=== PATIENT | female | born 1980 | race Hispanic/Latino ===

== ENCOUNTER 2017-01-16 17:30 | Emergency (ER) | payer BC ==
[2017-01-16 17:39] VITALS: BP 116/79; PULSE 73; RESP 20; TEMP 97.5; O2SAT 100
--- NOTE | 2017-01-16 18:06 | ED PDOC ---
Arrival/HPI - General Chief Complaint: Foreign Body Time Seen by Provider: 01/16/17 17:38 Historian: Patient - History of Present Illness Narrative History of Present Illness (Text): 01/16/17 18:03 36 y.o. female who denies any past medical history who says that she placed a tampon in her vagina about 4-5 days ago and forgot it in. She subsequently had sex and noticed after it the foul smelly discharge. She denies any pain or n/v or fever or pain or burning with urination. Past Medical History - Travel History If Yes, travel location?: [facility] - Infectious Disease Hx of Infectious Diseases: None - Psychiatric Hx Substance Use: No - Surgical History Hx Tonsillectomy: Yes - Anesthesia Hx Anesthesia: Yes Hx Anesthesia Reactions: No Family/Social History Family/Social History: No Known Family HX Smoking Status: Never Smoked Hx Alcohol Use: Yes Frequency of alcohol use: Socially Hx Substance Use: No Allergies/Home Meds Allergies/Adverse Reactions: Allergies No Known Allergies Allergy (Unverified 01/16/17 17:50) Review of Systems - Review of Systems Constitutional: absent: Fevers Gastrointestinal: absent: Abdominal Pain, Nausea, Vomiting Genitourinary Female: absent: Dysuria, Frequency Physical Exam Vital Signs Temp Pulse Resp BP Pulse Ox 01/16/17 17:37 97.5 F L 73 20 116/79 100 Temperature: Afebrile Blood Pressure: Normal Pulse: Regular Respiratory Rate: Normal Appearance: Positive for: Well-Appearing, Non-Toxic, Comfortable Pain Distress: None Mental Status: Positive for: Alert and Oriented X 3 - Systems Exam Head: Present: Atraumatic, Normocephalic Abdomen: Present: Normal Bowel Sounds. No: Tenderness, Distention, Peritoneal Signs Genitourinary/Pelvic Exam: Present: Normal External Genitalia, Vaginal Discharge (scant foul smelly discharge), Cervical os Closed, Odor, Other ( tampon seen on speculum exam and removed with tongs). No: Vaginal Lesions, Adenexal Tenderness, Adenexal Mass, Cervical Motion Tendernes Back: Present: Normal Inspection. No: CVA Tenderness Lower Extremity: Present: Normal Inspection. No: Edema Medical Decision Making ED Course and Treatment: 01/16/17 18:11 Patient with noted history with vaginal foreign body removed. 01/16/17 18:13 HCG negative; urine is negative for UTI - will d/c on flagyl and doxycycline. - Lab Interpretations Lab Results: Lab Results 01/16/17 17:52: Urine Color Yellow, Urine Appearance Clear, Urine pH 6.0, Ur Specific [place] 1.025, Urine Protein Negative, Urine Glucose (UA) Negative, Urine Ketones Negative, Urine Blood Negative, Urine Nitrate Negative, Urine Bilirubin Negative, Urine Urobilinogen 0.2, Ur Leukocyte Esterase Negative - Medication Orders Current Medication Orders: Discontinued Medications Doxycycline Hyclate (Doryx) 100 mg PO STAT STA PRN Reason: Protocol Stop: 01/16/17 18:03 Metronidazole (Flagyl) 500 mg PO STAT STA PRN Reason: Protocol Stop: 01/16/17 18:03 Disposition/Present on Arrival - Present on Arrival Any Indicators Present on Arrival: No History of DVT/PE: No History of Uncontrolled Diabetes: No Urinary Catheter: No History of Decub. Ulcer: No History Surgical Site Infection Following: None - Disposition Have Diagnosis and Disposition been Completed?: Yes Diagnosis: Retained vaginal foreign body Disposition: HOME/ ROUTINE Disposition Time: 18:20 Patient Plan: Discharge Condition: GOOD Discharge Instructions (ExitCare): Vaginal Foreign Body (ED) Additional Instructions: Take the antibiotics as prescribed. Follow up with your [employer]. Return to the emergency department if any new concerning symptoms. Prescriptions: Doxycycline Monohydrate 100 mg PO BID #14 capsule metroNIDAZOLE [Flagyl] 1 tab PO TID #21 tab
[2017-01-16 18:12] LABS: URINE BILIRUBIN NEGATIVE (NEGATIVE); URINE BLOOD NEGATIVE (NEGATIVE); URINE GLUCOSE (UA) NEGATIVE (NEGATIVE); URINE LEUKOCYTE ESTERASE NEGATIVE Leu/uL (NEGATIVE); URINE NITRATE NEGATIVE (NEGATIVE); URINE PROTEIN NEGATIVE mg/dL (<30 mg/dL); URINE UROBILINOGEN 0.2 E.U./dL (<1 E.U./dL)
[2017-01-16 18:15] LABS: URINE APPEARANCE CLEAR (CLEAR); URINE COLOR YELLOW (YELLOW)
== END 2017-01-16 18:37 | disposition home or self-care (01) ==
LOC: ED 17:30
DX: T19.2XXA Foreign body in vulva and vagina, initial encounter (principal); X58.XXXA Exposure to other specified factors, initial encounter; Y93.89 Activity, other specified; Y92.89 Other specified places as the place of occurrence of the external cause